=== PATIENT | female | born 1950 | race Caucasian/White ===

== ENCOUNTER → 2016-10-22 | Outpatient (CLI) | payer OTHER | LOC: MMPC 09:00 | PROVIDERS: ATTEND Family Medicine | DX: F32.0 Major depressive disorder, single episode, mild (principal); R63.4 Abnormal weight loss; E53.8 Deficiency of other specified B group vitamins; E03.9 Hypothyroidism, unspecified; I10 Essential (primary) hypertension; Z78.0 Asymptomatic menopausal state | CPT/HCPCS: 99214; G0463 ==

== ENCOUNTER → 2016-11-01 | Outpatient (CLI) | payer OTHER ==
--- NOTE | 2016-11-04 15:17 | DI ---
CT BONE DENSITOMETRY OF THE SPINE AND HIP, 11/01/2016 1:49 PM : Clinical History: Asymptomatic post menopausal patient. Screening. Previous Exam: None at this facility. 3D Quantitative CT (QCT) Bone Mineral Densitometry: The [place] scans are normal. Low dose scans are obtained of the lumbar spine and sampling is obtaine d through the midbodies of L1 and L2. The average volumetric bone mineral density (BMD) of the lumbar spine is 90.3 mg/cm3. This value corresponds to a volumetric T-score of -3.0 and Z-score of -0.2 as assessed by this BMD software. Volumetric 3D QCT and areal DEXA T-scores and Z-scores are not directl y equivalent. Using the [employer]'s (ACR) volumetric QCT trabecular spine BMD con version table that is closely equivalent to the areal WHO diagnostic categories, this patient falls i nto the category of osteopenia. CT X-Ray Absorptiometry (CTXA) Hip Bone Mineral Densitometry: Low dose scans are obtained through the hips for assessment of bone mineral density (BMD) and T-score s and Z-scores of the left hip. Evaluation of the left hip is somewhat limited due to metallic artifa ct. Total hip BMD: 0.442 mg/cm2 T-score: -4.13 Z-score: Femoral neck BMD: 0.354 mg/cm2 T-score: -3.98 Z-score: Note: T-scores of the spine and hip exhibit discordant readings approximately 40% of the time in eval uated patients. Changes in BMD determined either by volumetric QCT or areal DEXA are more reliable in assessment of change in a patient's BMD status rather than changes in T-scores. The CTXA hip CT bone mineral density measurements and the resultant T-scores and Z-scores are exact hip DEXA scan equival ents. The femoral neck T-score can be used in the WHO's FRAX program for assessing an untreated patie nt's 10 year fracture risk. READING: Osteopenia of the lumbar spine and osteoporosis of the left hip.
== END ==
LOC: CT 13:43
PROVIDERS: ATTEND Nurse Practitioner Family
DX: Z78.0 Asymptomatic menopausal state (principal); Z13.820 Encounter for screening for osteoporosis
CPT/HCPCS: 77078

== ENCOUNTER → 2016-11-18 | Outpatient (CLI) | payer OTHER ==
[2016-11-18 13:28] LABS: CALCIUM 9.2 mg/dL (8.7-10.7)
== END ==
LOC: LAB 13:00
PROVIDERS: ATTEND Family Medicine
DX: M81.0 Age-related osteoporosis without current pathological fracture (principal)
CPT/HCPCS: 36415; 82310; 82565

== ENCOUNTER → 2016-12-03 | Outpatient (CLI) | payer OTHER ==
--- NOTE | 2016-12-03 15:47 | EKG ---
[address] [address] Measurements Intervals [place] Rate: 84 P: 65 MD: 180 QRS: -16 QRSD: 94 T: 58 QT: 390 QTc: 432 Interpretive Statements SINUS RHYTHM WITH FREQUENT SUPRAVENTRICULAR PREMATURE COMPLEXES (in a trigeminal pattern) NONSPECIFIC T-WAVE ABNORMALITY ABNORMAL RHYTHM ECG Compared to ECG 07/07/2015 22:27:14 T-wave abnormality now present Sinus tachycardia no longer present Electronically Signed On 12-04-16 08:12:03 MDT by Trevor Perales MD [email or web address]
== END ==
LOC: MOB EKG 15:40
PROVIDERS: ATTEND Nurse Practitioner Family
DX: I49.9 Cardiac arrhythmia, unspecified (principal)
CPT/HCPCS: 93005; 93010

== ENCOUNTER → 2017-01-07 | Outpatient (CLI) | payer OTHER ==
--- NOTE | 2017-01-07 14:05 | EKG ---
[address] [place] [address] Measurements Intervals [place] Rate: 70 P: 64 MS: 172 QRS: -21 QRSD: 86 T: 55 QT: 430 QTc: 450 Interpretive Statements SINUS RHYTHM LOW QRS VOLTAGE IN PRECORDIAL LEADS NONSPECIFIC ST CHANGES Compared to ECG 12/03/2016 15:51:39 Low QRS voltage now present ST (T wave) deviation now present T-wave abnormality no longer present Electronically Signed On 01-07-17 14:39:07 MDT by Misael Rodriguez [email or web address]
== END ==
LOC: MOB EKG 13:04
PROVIDERS: ATTEND Specialist
DX: R07.9 Chest pain, unspecified (principal); I10 Essential (primary) hypertension
CPT/HCPCS: 93005; 93010

== ENCOUNTER → 2017-03-11 | Outpatient (CLI) | payer OTHER | LOC: MMPC 09:00 | PROVIDERS: ATTEND Family Medicine | DX: R19.7 Diarrhea, unspecified (principal); R63.0 Anorexia; E03.9 Hypothyroidism, unspecified; F32.0 Major depressive disorder, single episode, mild | CPT/HCPCS: 99214; G0463 ==